=== PATIENT | male | born 1975 | race Caucasian/White ===

== ENCOUNTER 2016-08-30 15:31 | Observation (INO) | payer OTHER ==
[2016-08-30] MEDS ORDERED: SODIUM CHLORIDE 0.9% 1,000 ML IV STA (16:40)
[2016-08-30 17:17] LABS: Basophils % (A) 1 %; CH 32.4; CHCM 33.2; Eosinophils # (A) 0.1 k/uL (0-0.7); Eosinophils % (A) 1 %; HCT 44.5 % (39.0-53.0); HDW 2.04; HGB 14.8 gm/dL (13.0-17.5); Luc # (Auto) 0.23; Luc % (Auto) 3; Lymphocytes # (A) 2.2 k/uL (1.0-4.8); Lymphocytes % (A) 24 %; MCH 32.6 pg (25.0-35.0); MCHC 33.2 g/dL (31.0-37.0); MCV 98.1 fL (80.0-100.0); Mean Platelet Volume 7.6; Monocytes # (A) 0.5 k/uL (0-1.0); Monocytes % (A) 6 %; Neutrophils # (A) 6.2 k/uL (1.3-7.7); Neutrophils % (A) 67 %; RBC 4.53 m/uL (4.30-5.90); RDW 14.3 % (11.5-15.5); WBC 9.3 k/uL (3.8-10.6); WBC (Perox) 9.06
[2016-08-30 17:27] LABS: ALT 38 U/L (21-72); AST 33 U/L (17-59); Alkaline Phosphatase 67 U/L (38-126); Anion Gap 9 mmol/L; Blood Urea Nitrogen 16 mg/dL (9-20); Calcium 9.4 mg/dL (8.4-10.2); Carbon Dioxide 24 mmol/L (22-30); Chloride 106 mmol/L (98-107); Glucose 83 mg/dL (74-99); Non-African American GFR(MDRD) >60 (>60 ml/min/1.73 sqM); Potassium 4.3 mmol/L (3.5-5.1); Sodium 139 mmol/L (137-145); Total Bilirubin 0.4 mg/dL (0.2-1.3); Total Protein 6.8 g/dL (6.3-8.2)
--- NOTE | 2016-08-30 17:31 | CT ---
EXAMINATION TYPE: CT brain wo con for TPA DATE OF EXAM: 08/30/2016 COMPARISON: NONE HISTORY: Patient complains of left side body numbness and headache. CT DLP: 782.[address] of the brain was performed. There is a previous right temporal craniotomy with postoperative encephalomalacia right temporal lobe . There is no evidence for intracranial hemorrhage or sulcal effacement. No mass effects are seen. Osseous calvarium is otherwise intact. If symptoms persist consider MRI as clinically warranted. IMPRESSION: 1. No acute intracranial process is seen at this time.
--- NOTE | 2016-08-30 17:32 | XR ---
EXAMINATION TYPE: XR chest 2V DATE OF EXAM: 08/30/2016 CLINICAL HISTORY: Shortness of breath TECHNIQUE: Frontal and lateral views of the chest are obtained. COMPARISON: 12/03/2013 FINDINGS: There is no focal air space opacity, pleural effusion, or pneumothorax seen. The cardiac silhouette size is within normal limits. The osseous structures are intact. IMPRESSION: No acute cardiopulmonary process.
[2016-08-30 17:41] LABS: Creatine Kinase 44 U/L (55-170)
[2016-08-30] MEDS ORDERED: ONDANSETRON 4 MG/2 ML VIAL IVP STA (17:42)
[2016-08-30] MEDS ORDERED: HYDROmorphone 1 MG/ML 1 ML SYRINGE IVP STA (17:42)
[2016-08-30 17:52] LABS: Prothrombin Time 10.2 sec (9.0-12.0)
[2016-08-30 17:53] LABS: Creatine Kinase MB 0.3 ng/mL (0.0-2.4); Troponin I <0.012 ng/mL (0.000-0.034)
[2016-08-30] MEDS ORDERED: ASPIRIN 81 MG PO STA (18:04)
[2016-08-30] MEDS ORDERED: SODIUM CHLORIDE 0.9% 1,000 ML IV ONE (18:20)
--- NOTE | 2016-08-30 18:20 | ED ---
Neuro HPI - General Chief Complaint: Neuro Symptoms/Deficit Stated Complaint: facial & left arm numbness Time Seen by Provider: 08/30/16 16:29 Source: patient Mode of arrival: wheelchair Limitations: no limitations - History of Present Illness Is the patient presenting with stroke symptoms?: No Initial Comments: Total 11 years old male had ongoing headache for 3 weeks ago, worse for the last 2 days and around 2 PM today he noticed that he had a headache all ports and also had left facial numbness and left upper extremity and left lower extremity numbness. Compromised left flank he is able to walk. There is no carotid or is not dropping things he just feels it is. He has a history of brain tumor he had a craniotomy done back in 1993 in his vision was blurred of the left eye as well which has improved. He does have a headache no neck stiffness no chest or shortness of breath no motor deficits orweakness of upper or lower extremities - Related Data Home Medications: Home Medications Medication Instructions Recorded Confirmed Ibuprofen [Motrin] 400 mg PO Q6HR PRN 08/30/16 08/30/16 Allergies/Adverse Reactions: Allergies Allergy/AdvReac Type Severity Reaction Status Date / Time venom-honey bee Allergy Anaphylaxis Verified 08/30/16 15:56 [bee venom (honey bee)] Review of Systems ROS Statement: Those systems with pertinent positive or pertinent negative responses have been documented in the HPI. ROS Other: All systems not noted in ROS Statement are negative. General Exam - General Exam Comments Initial Comments: General: The patient is awake and alert, in no distress, and does not appear acutely ill. GCS is 15 Skin: Skin is warm and dry and no rashes or lesions are noted. Eye: Pupils are equal, round and reactive to light, extra-ocular movements are intact; there is normal conjunctiva bilaterally. Ears, nose, mouth and throat: There are moist mucous membranes and no oral lesions. Neck: The neck is supple, there is no tenderness or JVD. Cardiovascular: There is a regular rate and rhythm. No murmur, rub or gallop is appreciated. Respiratory: To auscultation bilateral, no wheezing no rhonchi no distress respiratory escalante noticed Gastrointestinal: Soft, non-distended, non-tender abdomen without masses or organomegaly noted. There is no rebound or guarding present. Bowel sounds are unremarkable. Back: There is no tenderness to palpation in the midline. There is no obvious deformity. Musculoskeletal: Normal ROM, no tenderness, There is no pedal edema. There is no calf tenderness or swelling. No cords were appreciated. Neurological: CN II-XII intact, Cranial nerves III through XII are intact. There are no obvious motor or sensory deficits. Coordination appears grossly intact. Speech is normal. Psychiatric: Cooperative, appropriate mood & affect, normal judgment. Limitations: no limitations Stroke MDM - Lab Data Result diagrams: 08/30/16 16:05 08/30/16 16:05 Lab Results 08/30/16 08/30/16 08/30/16 Range/Units 16:05 16:05 16:05 WBC 9.3 (3.8-10.6) k/uL RBC 4.53 (4.30-5.90) m/uL Hgb 14.8 (13.0-17.5) gm/dL Hct 44.5 (39.0-53.0) % MCV 98.1 (80.0-100.0) fL MCH 32.6 (25.0-35.0) pg MCHC 33.2 (31.0-37.0) g/dL RDW 14.3 (11.5-15.5) % Plt Count 251 (150-450) k/uL Neutrophils % 67 % Lymphocytes % 24 % Monocytes % 6 % Eosinophils % 1 % Basophils % 1 % Neutrophils # 6.2 (1.3-7.7) k/uL Lymphocytes # 2.2 (1.0-4.8) k/uL Monocytes # 0.5 (0-1.0) k/uL Eosinophils # 0.1 (0-0.7) k/uL Basophils # 0.0 (0-0.2) k/uL PT (9.0-12.0) sec INR (<1.2) APTT (22.0-30.0) sec Sodium 139 (137-145) mmol/L Potassium 4.3 (3.5-5.1) mmol/L Chloride 106 (98-107) mmol/L Carbon Dioxide 24 (22-30) mmol/L Anion Gap 9 mmol/L BUN 16 (9-20) mg/dL Creatinine 0.87 (0.66-1.25) mg/dL Est GFR (MDRD) Af Amer >60 (>60 ml/min/1.73 sqM) Est GFR (MDRD) Non-Af >60 (>60 ml/min/1.73 sqM) Glucose 83 (74-99) mg/dL Calcium 9.4 (8.4-10.2) mg/dL Total Bilirubin 0.4 (0.2-1.3) mg/dL AST 33 (17-59) U/L ALT 38 (21-72) U/L Alkaline Phosphatase 67 (38-126) U/L Total Creatine Kinase 44 L (55-170) U/L CK-MB (CK-2) 0.3 (0.0-2.4) ng/mL CK-MB (CK-2) Rel Index 0.7 Troponin I <0.012 (0.000-0.034) ng/mL Total Protein 6.8 (6.3-8.2) g/dL Albumin 4.4 (3.5-5.0) g/dL 08/30/16 Range/Units 16:05 WBC (3.8-10.6) k/uL RBC (4.30-5.90) m/uL Hgb (13.0-17.5) gm/dL Hct (39.0-53.0) % MCV (80.0-100.0) fL MCH (25.0-35.0) pg MCHC (31.0-37.0) g/dL RDW (11.5-15.5) % Plt Count (150-450) k/uL Neutrophils % % Lymphocytes % % Monocytes % % Eosinophils % % Basophils % % Neutrophils # (1.3-7.7) k/uL Lymphocytes # (1.0-4.8) k/uL Monocytes # (0-1.0) k/uL Eosinophils # (0-0.7) k/uL Basophils # (0-0.2) k/uL PT 10.2 (9.0-12.0) sec INR 1.0 (<1.2) APTT 23.0 (22.0-30.0) sec Sodium (137-145) mmol/L Potassium (3.5-5.1) mmol/L Chloride (98-107) mmol/L Carbon Dioxide (22-30) mmol/L Anion Gap mmol/L BUN (9-20) mg/dL Creatinine (0.66-1.25) mg/dL Est GFR (MDRD) Af Amer (>60 ml/min/1.73 sqM) Est GFR (MDRD) Non-Af (>60 ml/min/1.73 sqM) Glucose (74-99) mg/dL Calcium (8.4-10.2) mg/dL Total Bilirubin (0.2-1.3) mg/dL AST (17-59) U/L ALT (21-72) U/L Alkaline Phosphatase (38-126) U/L Total Creatine Kinase (55-170) U/L CK-MB (CK-2) (0.0-2.4) ng/mL CK-MB (CK-2) Rel Index Troponin I (0.000-0.034) ng/mL Total Protein (6.3-8.2) g/dL Albumin (3.5-5.0) g/dL Past Medical History Additional Past Medical History / Comment(s): kidney stones History of Any Multi-Drug Resistant Organisms: Other MDRO Date of last positivie culture/infection: 11/07/13 MDRO Source:: abdomen Additional Past Surgical History / Comment(s): craniotomy x 4 for ganglioma Past Psychological History: No Psychological Hx Reported Smoking Status: Former smoker Past Alcohol Use History: None Reported Past Drug Use History: None Reported Course Vital Signs 08/30/16 08/30/16 08/30/16 15:33 16:10 17:10 Temperature 98.7 F 98.6 F Pulse Rate 98 85 84 Respiratory 18 16 18 Rate Blood Pressure 136/78 134/90 133/70 O2 Sat by Pulse 100 99 98 Oximetry 08/30/16 17:54 Temperature Pulse Rate 80 Respiratory 18 Rate Blood Pressure 133/71 O2 Sat by Pulse 97 Oximetry EKG is normal sinus rhythm ventricular rate is 76 AK interval is 144 QRS duration is 82 QT/QTc is 364/4: Review of this EKG does not reveal any ST elevation or ST depression - Reevaluation(s) Reevaluation #2: 08/30/16 18:18 Was reassessed at 1800, his labs were reviewed and discussed with him his CBC, CMP, troponin, EKG, head CT are all normal considering persistence paresthesia of the left side of the face left arm and the left leg does is no motor deficits are all cranial nerves are intact to be admitted for observation may be given aspirin 81 mg a bit better to Dr. Alicea service and will consult Dr. lou meal Disposition Clinical Impression: Facial paresthesia, Paresthesia of left arm and leg Disposition: ADMITTED IP TO THIS HOSP Condition: Good Referrals: Rosey Johnson MD [Primary Care Provider] - 1-2 days
--- NOTE | 2016-08-30 18:59 | XR ---
EXAMINATION TYPE: XR orbit pre-MRI foreign body DATE OF EXAM: 08/30/2016 COMPARISON: NONE HISTORY: MRI clearance TECHNIQUE: 4 views of the orbits are submitted. FINDINGS: No evidence for radiopaque foreign body about the orbits. Right temporal parietal craniotom y changes identified. IMPRESSION: The patient is cleared for MRI.
[2016-08-30 20:56] VITALS: BMI 23.6
[2016-08-30] MEDS: HYDROcodone/APAP 5-325MG 1 EACH TAB PO PRN (22:50)
--- NOTE | 2016-08-30 23:17 | P.CNNES ---
History of Present Illness Consult date: 08/30/16 History of Present Illness: The patient is a 41-year-old man who has been having headaches for the last 3 weeks. He also has been noticing some left eye visual disturbance. He saw an regional transfer liaison who noticed in slight asymmetry in his pupils. He saw his primary care physician who scheduled him for an MRI which was scheduled for next Sunday. He reports that the headaches became more intense and he came to the emergency room because he also had associated left facial numbness and tingling and left arm and leg numbness. This began today. His headache is located in the left occipital region. Next Patient has a history of ganglioglioma resection in 1993 and has had 3 surgeries craniotomies for this.'s also had a craniotomy for epilepsy in 1998 he denies any recent grand mal or complex partial seizures. He does describe some episodes of dj vu. He states that he got tired of taking his seizure medications. His been tried on numerous medications including Lamictal Dilantin and Keppra and Tegretol. He just did not like the idea of taking medications. Dates she's not had any seizure episodes were he's lost awareness. Next The patient has been describing some of localized left shoulder tenderness which began today. Also has been having some lower back problems. Review of Systems Constitutional: Denies chills, Denies fever Ears, nose, mouth and throat: Denies headache, Denies sore throat Cardiovascular: Denies chest pain, Denies shortness of breath Respiratory: Denies cough Gastrointestinal: Denies abdominal pain, Denies diarrhea, Denies nausea, Denies vomiting Musculoskeletal: Denies myalgias Integumentary: Denies pruritus, Denies rash Neurological: Denies numbness, Denies weakness Psychiatric: Denies anxiety, Denies depression Past Medical History Additional Past Medical History / Comment(s): kidney stones History of Any Multi-Drug Resistant Organisms: Other MDRO Date of last positivie culture/infection: 11/07/13 MDRO Source:: abdomen Past Surgical History: Hernia Repair Additional Past Surgical History / Comment(s): craniotomy x 4 for ganglioma, Hernia repair june 2016, colonoscopy Past Anesthesia/Blood Transfusion Reactions: No Reported Reaction Past Psychological History: Anxiety Smoking Status: Former smoker Past Alcohol Use History: None Reported Past Drug Use History: None Reported - Past Family History Father Additional Family Medical History / Comment(s): yolanda's, and now has a colostomy Medications and Allergies Home Medications Medication Instructions Recorded Confirmed Type Ibuprofen [Motrin] 400 mg PO Q6HR PRN 08/30/16 08/30/16 History Allergies Allergy/AdvReac Type Severity Reaction Status Date / Time venom-honey bee Allergy Anaphylaxis Verified 08/30/16 15:56 [bee venom (honey bee)] Physical Examination - Vital Signs Vital Signs: Vital Signs Temp Pulse Resp BP Pulse Ox 08/30/16 19:15 97.7 F 74 18 134/59 96 08/30/16 18:22 98.0 F 83 18 130/78 98 08/30/16 17:54 80 18 133/71 97 08/30/16 17:10 84 18 133/70 98 08/30/16 16:10 98.6 F 85 16 134/90 99 08/30/16 15:33 98.7 F 98 18 136/78 100 Intake and Output 08/30/16 08/30/16 08/30/16 06:59 14:59 22:59 Other: # Voids 1 Weight 70.307 kg Patient Weight 08/31/16 06:59 Weight 70.307 kg - Constitutional General appearance: average body habitus - EENT EENT: PERRL, hearing intact, vision intact - Respiratory Respiratory: lungs clear - Cardiovascular Cardiovascular: regular rate - Integumentary Integumentary: normal - Neurologic Mental status he was awake alert and oriented his speech was fluent there was no a aphasia or dysarthria. Cranial nerve examination: PERRL, EOMI, VFF, V1/V2/V3 grossly intact, face symmetric, tongue midline Speech examination: intact Detailed motor examination: grossly full strength in all extremities Motor examination - right side: 5/5: biceps, triceps, wrist flexion, wrist extension, flatwork tier, hip flexors, knee extensors, dorsiflexion, toe extension (EHL) , plantarflexion Motor examination - left side: 5/5: biceps, triceps, wrist flexion, wrist extension, flatwork tier, hip flexors, knee extensors, dorsiflexion, toe extension (EHL) , plantarflexion Reflexes: 3+: knee (Left) - Psychiatric Psychiatric: mood/affect appropriate Results - Laboratory Findings CBC and BMP: 08/30/16 16:05 08/30/16 16:05 Abnormal Lab Findings: Abnormal Labs 08/30/16 16:05 Total Creatine Kinase 44 L Assessment and Plan (1) Occipital neuralgia of left side Status: Acute Code(s): M54.81 - OCCIPITAL NEURALGIA (2) History of brain tumor Status: Chronic Code(s): Z87.898 - PERSONAL HISTORY OF OTHER SPECIFIED CONDITIONS (3) TIA (transient ischemic attack) Status: Acute Code(s): G45.9 - TRANSIENT CEREBRAL ISCHEMIC ATTACK, UNSPECIFIED Plan: The patient is a 41-year-old man with history of right temporal ganglioglioma resection in 1993. He also has a history of seizures and has had a craniotomy done for epilepsy in 1998. He presents to the hospital with new-onset headaches and left eye visual blurring. Also has experienced right face arm and leg tingling and numbness. Patient should be evaluated further with MRI of the brain given his history of tumor. Also we will do a TIA workup including carotid ultrasound and echocardiogram. He will be started on 1 baby aspirin daily. He does have left occipital notch tenderness suggesting left occipital neuralgia which may be the source of his headaches. He was advised that an occipital nerve block should help improve his headache pain. She will have an MRI of the cervical spine because of the occipital notch tenderness and neck tightness. So is experiencing left shoulder pain and numbness of the left arm and leg the patient is aware of the [place] law regarding driving and seizures. He states he's not had a seizure in many years. He is having some d j vu occasionally and was advised to take anticonvulsant medication however he does not wish to take any medication at this time.
[2016-08-31] MEDS: HYDROcodone/APAP 5-325MG 1 EACH TAB PO PRN ×4 (03:31→17:19)
--- NOTE | 2016-08-31 08:47 | US ---
EXAMINATION TYPE: US carotid duplex BILAT DATE OF EXAM: 08/31/2016 COMPARISON: NONE CLINICAL HISTORY: TIA. TIA. Admitted for neuro deficits or left-sided numbness one day earlier. EXAM MEASUREMENTS: RIGHT: Peak Systolic Velocity (PSV) cm/sec ----- Right CCA: 72.9 ----- Right ICA: 90.0 ----- Right ECA: 57.6 ICA/CCA ratio: 1.2 RIGHT: End Diastole cm/sec ----- Right CCA: 25.8 ----- Right ICA: 50.7 ----- Right ECA: 12.4 LEFT: Peak Systolic Velocity (PSV) cm/sec ----- Left CCA: 70.5 ----- Left ICA: 84.7 ----- Left ECA: 51.6 ICA/CCA ratio: 1.2 LEFT: End Diastole cm/sec ----- Left CCA: 20.8 ----- Left ICA: 46.8 ----- Left ECA: 14.9 VERTEBRALS (direction of flow): Right Vertebral: Antegrade Left Vertebral: Antegrade No elevated velocities, no significant stenosis Grayscale images show no significant focal plaque at carotid bulb level bilaterally. IMPRESSION: No hemodynamically significant stenosis is seen in either internal carotid artery.
[2016-08-31] MEDS ORDERED: ASPIRIN 81 MG PO SCH (09:00)
[2016-08-31 09:18] VITALS: RESP 18
--- NOTE | 2016-08-31 11:27 | ECHOF ---
Referral Reason:TIA MEASUREMENTS -------- HEIGHT: 172.7 cm WEIGHT: 64.0 kg BP: 118/62 RVIDd: 3.4 cm (< 3.3) IVSd: 0.9 cm (0.6 - 1.1) LVIDd: 4.9 cm (3.9 - 5.3) LVPWd: 0.7 cm (0.6 - 1.1) IVSs: 1.0 cm LVIDs: 3.8 cm LVPWs: 1.0 cm LAESV Index (A-L): 30.15 ml/m Ao Diam: 2.9 cm (2.0 - 3.7) AV Cusp: 1.8 cm (1.5 - 2.6) LA Diam: 3.4 cm (2.7 - 3.8) MV EXCURSION: 22.213 mm (> 18.000) MV EF SLOPE: 137 mm/s (70 - 150) EPSS: 0.5 cm MV E Sergio: 0.73 m/s MV DecT: 167 ms MV A Sergio: 0.42 m/s MV E/A Ratio: 1.76 RAP: 5.00 mmHg RVSP: 23.25 mmHg FINDINGS -------- Sinus rhythm. This was a technically adequate study. LV size, wall thickness and systolic function are normal, with an EF greater than 55%. The right ventricle is normal in size. LA is moderately dilated 34-39 ml/m2 The right atrial size is normal. The aortic valve is trileaflet, and appears structurally normal. No aortic stenosis or regurgitation. Mild mitral regurgitation is present. Mild tricuspid regurgitation present. There is no evidence of pulmonary hypertension. The right ventricular systolic pressure, as measured by Doppler, is 23.25mmHg. There is no pulmonic regurgitation present. The aortic root size is normal. There is no pericardial effusion. CONCLUSIONS -------- 1. LV size, wall thickness and systolic function are normal, with an EF greater than 55%. 2. LA is moderately dilated 34-39 ml/m2 3. Mild mitral regurgitation is present. 4. Mild tricuspid regurgitation present. 5. There is no evidence of pulmonary hypertension. 6. The right ventricular systolic pressure, as measured by Doppler, is 23.25mmHg. 7. There is no pulmonic regurgitation present. 8. The aortic root size is normal. 9. There is no pericardial effusion. SOLUTIONS DEVELOPMENT ANALYST: Fabiola Alas RDCS
--- NOTE | 2016-08-31 12:10 | P.HPIM ---
History of Present Illness The patient is a 41-year-old man who has been having headaches for the last 3 weeks. Patient had some left eye visual disturbance, symptoms resolved now. He saw an loader operator who noticed in slight asymmetry in his pupils. He saw his primary care physician who scheduled him for an MRI which was scheduled for next Sunday. He reports that the headaches became more intense and he came to the emergency room because he also had associated left facial numbness and tingling and left arm . Patient's symptoms of headache are better now This began today. His headache is located in the left occipital region. Next Patient has a history of ganglioglioma resection in 1993 and has had 3 surgeries craniotomies for this.'s also had a craniotomy for epilepsy in 1998 he denies any recent grand mal or complex partial seizures. He does describe some episodes of dj vu. He states that he got tired of taking his seizure medications. His been tried on numerous medications including Lamictal Dilantin and Keppra and Tegretol. He just did not like the idea of taking medications. Dates she's not had any seizure episodes were he's lost awareness. Patient at this point of time had improved symptoms of headache patient also has been feeling and numbness of the left arm denied any numbness in the leg or weakness in the leg. Patient is being evaluated for radicular cervical spine disease with an MRI of the cervical spine and patient appears to have cervical nerve impingement and cervical cephalalgia. Patient will need physical therapy nonsteroidal anti-intermittent medications and possible normal blockade as an outpatient. Will discuss with neurology and if agreeable patient will be discharged home on nonsteroidal anti-inflammatory medications and aspirin 81 mg as recommended by neurology. Review of Systems REVIEW OF SYSTEMS: CONSTITUTIONAL: No fever, no malaise, no fatigue. HEENT: No recent visual problems or hearing problems. Denied any sore throat. CARDIOVASCULAR: No chest pain, orthopnea, PND, no palpitations, no syncope. PULMONARY: No shortness of breath, no cough, no hemoptysis. GASTROINTESTINAL: No diarrhea, no nausea, no vomiting, no abdominal pain. Normoactive bowel sounds. NEUROLOGICAL: As described in HPI HEMATOLOGICAL: Denies any bleeding or petechiae. GENITOURINARY: Denies any burning micturition, frequency, or urgency. MUSCULOSKELETAL/RHEUMATOLOGICAL: Denies any joint pain, swelling, or any muscle pain. ENDOCRINE: Denies any polyuria or polydipsia. The rest of the 14-point review of systems is negative. Past Medical History Additional Past Medical History / Comment(s): kidney stones History of Any Multi-Drug Resistant Organisms: Other MDRO Date of last positivie culture/infection: 11/07/13 MDRO Source:: abdomen Past Surgical History: Hernia Repair Additional Past Surgical History / Comment(s): craniotomy x 4 for ganglioma, Hernia repair june 2016, colonoscopy Past Anesthesia/Blood Transfusion Reactions: No Reported Reaction Past Psychological History: Anxiety Smoking Status: Former smoker Past Alcohol Use History: None Reported Past Drug Use History: None Reported - Past Family History Father Additional Family Medical History / Comment(s): cronh's, and now has a colostomy Medications and Allergies Home Medications Medication Instructions Recorded Confirmed Type Ibuprofen [Motrin] 400 mg PO Q6HR PRN 08/30/16 08/30/16 History Allergies Allergy/AdvReac Type Severity Reaction Status Date / Time venom-honey bee Allergy Anaphylaxis Verified 08/30/16 15:56 [bee venom (honey bee)] Physical Exam Vitals: Vital Signs Temp Pulse Pulse Resp BP BP Pulse Ox 08/31/16 09:12 97.9 F 63 18 115/65 95 08/31/16 07:47 97 08/31/16 04:00 51 L 16 118/62 99 08/31/16 00:00 57 L 18 114/67 99 08/30/16 19:15 97.7 F 74 18 134/59 96 08/30/16 18:22 98.0 F 83 18 130/78 98 08/30/16 17:54 80 18 133/71 97 08/30/16 17:10 84 18 133/70 98 08/30/16 16:10 98.6 F 85 16 134/90 99 08/30/16 15:33 98.7 F 98 18 136/78 100 Intake and Output 08/30/16 08/31/16 08/31/16 22:59 06:59 14:59 Intake Total 1200 Balance 1200 Intake: Intake, IV Titration 1200 Amount Sodium Chloride 0.9% 1, 1200 000 ml @ 100 mls/hr IV . Q10H ONE Rx#:[id number] Other: # Voids 1 Weight 70.307 kg 64.4 kg PHYSICAL EXAMINATION: GENERAL: The patient is alert and oriented x3, not in any acute distress. Well developed, well nourished. HEENT: Pupils are round and equally reacting to light. EOMI. No scleral icterus. No conjunctival pallor. Normocephalic, atraumatic. No pharyngeal erythema. No thyromegaly. CARDIOVASCULAR: S1 and S2 present. No murmurs, rubs, or gallops. PULMONARY: Chest is clear to auscultation, no wheezing or crackles. ABDOMEN: Soft, nontender, nondistended, normoactive bowel sounds. No palpable organomegaly. MUSCULOSKELETAL: No joint swelling or deformity. EXTREMITIES: No cyanosis, clubbing, or pedal edema. NEUROLOGICAL: Gross neurological examination did not reveal any focal deficits. SKIN: No rashes. Results CBC & Chem 7: 08/30/16 16:05 08/30/16 16:05 Labs: Abnormal Lab Results - Last 24 Hours (Table) 08/30/16 Range/Units 16:05 Total Creatine Kinase 44 L (55-170) U/L Thrombosis Risk Factor Assmnt - Choose All That Apply Any of the Below Risk Factors Present?: No Other Risk Factors: No Other congenital or acquired thrombophilia - If yes, enter type in comment: No Thrombosis Risk Factor Assessment Level: Very Low Risk Assessment and Plan Plan: #1 possible occipital neuralgia #2 cervical nerve impingement and radiculopathy 3History of temporal ganglioglioma status post resection in 1993 and history of seizures in the past was on multiple antiseizure medication regimen. Plan Patient was evaluated for TIA with a carotid Doppler echocardiogram essentially both of which are negative. And patient is awaiting MRI and after the MRI patient probably can be discharged with emesis and follow up with neurology as an outpatient.
--- NOTE | 2016-08-31 12:12 | P.DS ---
Providers Date of admission: 08/30/16 18:25 Attending physician: Julio Alicea Consults: 08/30/16 18:20 Consult Physician Stat Consulting Provider: Enriqueta Henning Consult Reason/Comments: Left-sided paresthesia Do you want consulting provider notified?: Yes 08/30/16 21:50 Consult Anesthesia Routine Consulting Provider: Anesthesia,Services Consult Reason/Comments: occipital nerve block on the left Primary care physician: Rosey Johnson Hospital Course: Please refer to HPI Patient Condition at Discharge: Good Plan - Discharge Summary New Discharge Prescriptions: New Aspirin 81 mg PO DAILY #30 chewable No Action Ibuprofen [Motrin] 400 mg PO Q6HR PRN PRN Reason: Pain Discharge Medication List Ibuprofen [Motrin] 400 mg PO Q6HR PRN 08/30/16 [History] Aspirin 81 mg PO DAILY #30 chewable 08/31/16 [Rx] Follow up Appointment(s)/Referral(s): Rosey Johnson MD [Primary Care Provider] - 3 Days Enriqueta Henning MD [STAFF PHYSICIAN] - 1 Week
[2016-08-31] MEDS ORDERED: KETOROLAC 30 MG/ML 1 ML VIAL IVP STA (14:17)
--- NOTE | 2016-08-31 15:02 | MR ---
EXAMINATION TYPE: MR cervical spine wo con DATE OF EXAM: 08/31/2016 2:43 PM COMPARISON: NONE HISTORY: Neck pain and arm weakness Multiplanar MultiSpin echo imaging of the cervical spine was performed. Comparison: none C2-C3: No evidence for degenerative disc disease. No disc bulge/herniation or protrusion. No Canal stenosis. Foramina are patent bilaterally. C3-C4: No evidence for degenerative disc disease. No disc bulge/herniation or protrusion. No Canal stenosis. Foramina are patent bilaterally. C4-C5: Mild disc desiccation noted with mild posterior disc bulge. No herniation or stenosis seen. No Canal stenosis. Foramina are patent bilaterally. C5-C6: Mild disc desiccation noted with mild posterior disc bulge. No herniation or stenosis seen. No Canal stenosis. Foramina are patent bilaterally. C6-C7: Mild disc desiccation noted. Small right paracentral disc protrusion. Mild effacement ventral thecal sac. No evidence for central stenosis or cord contact. Neural foramina are patent bilaterally. C7-T1: No evidence for degenerative disc disease. No disc bulge/herniation or protrusion. No Canal stenosis. Foramina are patent bilaterally. Cervical segments are intact. There is normal alignment. Cervical spinal cord is of normal signal. Craniovertebral junction relationships are within normal limits. IMPRESSION: 1. Degenerative disc disease as noted. 2. Small right paracentral disc protrusion at C6-7. Mild disc bulging is noted.
[2016-08-31 15:45] VITALS: BP 138/77; PULSE 76; TEMP 97.2
--- NOTE | 2016-08-31 20:17 | MR ---
EXAMINATION TYPE: MR brain wo/w con DATE OF EXAM: 08/31/2016 COMPARISON: CT brain 08/30/2016 HISTORY: HX of Brain Tumor TECHNIQUE: Multiplanar, multisequence images of the brain and brainstem is performed without and with IV contras t, utilizing 15 mL intravenous Omniscan . FINDINGS: Diffusion weighted images demonstrate no evidence of a recent infarct or other diffusion ab normality. Encephalomalacia present along the right temporal lobe as noted on CT. Local brain signal change compatible with prior surgery. The ventricular system and cisternal spaces are otherwise linette l in size and appearance no mass effect or hemorrhage. Previous craniotomy change is again noted. Midline structures demonstrate normal morphology. The craniocervical junction appears within normal limits. Post contrast images demonstrate no abnormal enhancement. The dural venous sinuses appear pa tent. The visualized sinuses are clear and the globes are intact. IMPRESSION: Postop changes. No evident recurrent mass.
== END 2016-08-31 20:50 | disposition home or self-care (01) ==
LOC: EC 15:31 → 6SEL 18:25
PROVIDERS: ADMIT Hospitalist; ATTEND Hospitalist
DX: H53.9 Unspecified visual disturbance (principal); R20.9 Unspecified disturbances of skin sensation; R51 Headache; M54.12 Radiculopathy, cervical region; Z91.14 Patient's other noncompliance with medication regimen; Z87.891 Personal history of nicotine dependence; Z16.24 Resistance to multiple antibiotics; Z91.030 Bee allergy status; Z86.011 Personal history of benign neoplasm of the brain
CPT/HCPCS: 96374 ×2; 96375 ×3; 99285 ×2; 36415; 94760; 93005; 93306; 80053; 82550; 82553; 84484; 85025; 85610; 85730; 70030; 71020; 93880; 70450; 70553; 72141; G0378 ×2; J2405; J1885; J1170; A9579